=== PATIENT | male | born 1965 | race Caucasian/White ===

== ENCOUNTER 2024-05-15 12:35 | Inpatient (IN) | payer BC, OTHER ==
[~2024-05-15] VITALS: Ht 180.3 cm; Wt 90.2 kg
[2024-05-15 17:30] VITALS: BP 204/122; PULSE 57; RESP 16; TEMP 98.2; O2SAT 97
[2024-05-15 17:56] VITALS: BP 204/122; PULSE 57; RESP 16; TEMP 98.2; O2SAT 97
[2024-05-15] MEDS ORDERED: HYDROmorphone HCL 2 MG/ML VL/or syr IV PRN (18:45)
[2024-05-15] MEDS ORDERED: ONDANSETRON HCL 4 MG/2 ML VIAL IV PRN (18:45)
[2024-05-15] MEDS ORDERED: hydrALAZINE HCL 20 MG/ML VL IV PRN (18:45)
[2024-05-15] MEDS ORDERED: DOCUSATE SOD 100 MG CAP PO PRN (18:45)
[2024-05-15 19:30] VITALS: PULSE 55; RESP 20; O2SAT 98
[2024-05-15 19:54] LABS: Basophils # (auto) 0 10 ^3/uL (0-0.2); Basophils % (auto) 0.4 % (0.0-2.0); Eosinophils # (auto) 0 10 ^3/uL (0-0.8); Eosinophils % (auto) 0.3 % (0.0-7.0); Hematocrit 41.5 % (41.0-53.0); Lymphocytes # (auto) 0.9 10 ^3/uL (0.4-5.4); Lymphocytes % (auto) 27.2 % (10.0-50.0); Mean Corpuscular Hemoglobin 31.3 pg (28.0-32.0); Mean Corpuscular Hgb Conc. 33.8 g/dL (32.0-36.0); Mean Corpuscular Volume 92.4 fL (80.0-100.0); Monocytes # (auto) 0.6 10 ^3/uL (0-1.3); Monocytes % (auto) 16.2 % (0.0-12.0); Neutrophils # (auto) 1.9 10 ^3/uL (1.6-8.6); Neutrophils % (auto) 55.9 % (37.0-80.0); Nucleated Red Blood Cells % 0.2 %; Platelet Count (auto) 158 10^3/uL (140-450); Red Blood Cells 4.49 10^6/uL (4.5-5.90); White Blood Cell 3.5 10^3/uL (4.4-10.8)
[2024-05-15 20:12] LABS: Alanine Aminotransferase 18 U/L (7-40); Albumin 4.3 g/dL (3.2-4.8); Alkaline Phosphatase 64 U/L (46-116); Anion Gap 7 (5-15); Aspartate Aminotransferase 19 U/L (13-40); BUN/Creatinine Ratio 7.2 (10.0-20.0); Bilirubin, Total 0.5 mg/dL (0.2-1.0); Blood Urea Nitrogen 10 mg/dL (9-23); Calcium 9.2 mg/dL (8.7-10.4); Carbon Dioxide 26 mmol/L (20-30); Chloride 105 mmol/L (98-107); Glucose 97 mg/dL (74-106); Potassium 3.2 mmol/L (3.5-5.1); Sodium 138 mmol/L (136-145); Total Protein 7.3 g/dL (5.7-8.2)
[2024-05-15 20:29] LABS: LDL Cholesterol 109 mg/dL (< 100); Triglycerides 111 mg/dL (< 150)
[2024-05-15 20:30] LABS: HDL Cholesterol 40 mg/dL (40-59)
[2024-05-15 20:31] LABS: Cholesterol 168 mg/dL (< 200)
[2024-05-15 21:00] VITALS: BP 214/124; PULSE 63; RESP 20; TEMP 98.2; O2SAT 97
[2024-05-15] MEDS: SODIUM CHLOR 0.9% PF (SALINE LOCK) 10ML VIAL/SYR IV SCH (22:00)
[2024-05-15] MEDS: CLOPIDOGREL BISULFATE 75 MG TAB PO SCH (23:45)
[2024-05-16] VITALS (9 sets, daily range): BP systolic 159–213; BP diastolic 93–125; PULSE 53–81; RESP 18–20; TEMP 97.2–98.3; O2SAT 95–100
[2024-05-16 07:35] LABS: Alanine Aminotransferase 14 U/L (7-40); Albumin 4.2 g/dL (3.2-4.8); Alkaline Phosphatase 56 U/L (46-116); Anion Gap 8 (5-15); Aspartate Aminotransferase 20 U/L (13-40); BUN/Creatinine Ratio 10.2 (10.0-20.0); Bilirubin, Total 0.4 mg/dL (0.2-1.0); Blood Urea Nitrogen 16 mg/dL (9-23); Carbon Dioxide 25 mmol/L (20-30); Chloride 106 mmol/L (98-107); Glucose 108 mg/dL (74-106); Potassium 3.7 mmol/L (3.5-5.1); Sodium 139 mmol/L (136-145); Total Protein 6.8 g/dL (5.7-8.2)
[2024-05-16] MEDS: LORazepam 2MG/ML-1ML VIAL IV PRN (08:09)
[2024-05-16] MEDS: ENOXAPARIN SOD 40 MG/0.4 ML SYRINGE SC SCH (08:42)
[2024-05-16] MEDS: ASPirin-EC 81 mg tab PO SCH (08:43)
[2024-05-16] MEDS ORDERED: CLOPIDOGREL BISULFATE 75 MG TAB PO SCH (10:00)
[2024-05-16 10:16] LABS: Basophils # (auto) 0 10 ^3/uL (0-0.2); Basophils % (auto) 0.4 % (0.0-2.0); Eosinophils # (auto) 0 10 ^3/uL (0-0.8); Eosinophils % (auto) 0.6 % (0.0-7.0); Hematocrit 42.7 % (41.0-53.0); Hemoglobin 14.1 g/dL (13.5-17.5); Lymphocytes # (auto) 0.9 10 ^3/uL (0.4-5.4); Mean Corpuscular Hemoglobin 30.8 pg (28.0-32.0); Mean Corpuscular Volume 93.4 fL (80.0-100.0); Monocytes # (auto) 0.6 10 ^3/uL (0-1.3); Monocytes % (auto) 15.6 % (0.0-12.0); Neutrophils # (auto) 2.4 10 ^3/uL (1.6-8.6); Neutrophils % (auto) 61.4 % (37.0-80.0); Nucleated Red Blood Cells % 0.2 %; Platelet Count (auto) 157 10^3/uL (140-450); Red Blood Cells 4.57 10^6/uL (4.5-5.90); Red Cell Distribution Width 16.1 % (11.8-14.3); White Blood Cell 3.9 10^3/uL (4.4-10.8)
[2024-05-16] MEDS ORDERED: LORazepam 2MG/ML-1ML VIAL IV PRN (10:25)
[2024-05-16] MEDS: hydrALAZINE HCL 20 MG/ML VL IV PRN (13:35)
[2024-05-16 14:18] LABS: Amphetamine Screen, Urine Neg (NEGATIVE); Barbiturate Scree,Urine Neg (NEGATIVE); Benzodiazephine Screen, Urine Neg (NEGATIVE); Cocaine Screen, Urine Neg (NEGATIVE)
[2024-05-16 14:19] LABS: Cannabinoid Screen, Urine Neg (NEGATIVE); Opiate Scree,Urine Neg (NEGATIVE); Phencyclidine Screen, Urine Neg (NEGATIVE)
[2024-05-16 15:51] LABS: Urine Bacteria None Seen /hpf (None Seen)
[2024-05-16 16:07] LABS: Urine Blood Negative /uL (Negative); Urine Clarity Clear (Clear); Urine Color Yellow (Yellow); Urine Mucus FEW (None Seen); Urine Protein, UAD 1+ (Negative); Urine Specific Gravity 1.023 (1.001-1.035); Urine Urobilinogen Normal (Negative); Urine WBC 1 /hpf (0 - 3); Urine pH 6.5 (5.0-9.0)
[2024-05-16] MEDS: ATORVASTATIN 20 MG TAB PO SCH (21:54)
[2024-05-17] VITALS (9 sets, daily range): BP systolic 111–218; BP diastolic 70–144; PULSE 61–81; RESP 16–20; TEMP 97.7–98.2; O2SAT 96–99
[2024-05-17 06:27] LABS: Basophils # (auto) 0 10 ^3/uL (0-0.2); Basophils % (auto) 0.3 % (0.0-2.0); Eosinophils # (auto) 0 10 ^3/uL (0-0.8); Eosinophils % (auto) 1.3 % (0.0-7.0); Hematocrit 41.7 % (41.0-53.0); Hemoglobin 14.1 g/dL (13.5-17.5); Lymphocytes % (auto) 30.2 % (10.0-50.0); Mean Corpuscular Hemoglobin 31.2 pg (28.0-32.0); Mean Corpuscular Hgb Conc. 33.7 g/dL (32.0-36.0); Mean Corpuscular Volume 92.5 fL (80.0-100.0); Monocytes # (auto) 0.6 10 ^3/uL (0-1.3); Monocytes % (auto) 16.7 % (0.0-12.0); Neutrophils # (auto) 1.7 10 ^3/uL (1.6-8.6); Neutrophils % (auto) 51.5 % (37.0-80.0); Nucleated Red Blood Cells % 0.3 %; Platelet Count (auto) 158 10^3/uL (140-450); Red Blood Cells 4.51 10^6/uL (4.5-5.90); Red Cell Distribution Width 16.1 % (11.8-14.3); White Blood Cell 3.4 10^3/uL (4.4-10.8)
[2024-05-17 06:40] LABS: Calcium 9.6 mg/dL (8.7-10.4); Chloride 105 mmol/L (98-107); Potassium 3.8 mmol/L (3.5-5.1); Sodium 138 mmol/L (136-145)
[2024-05-17 06:41] LABS: Anion Gap 5 (5-15); Carbon Dioxide 28 mmol/L (20-30)
[2024-05-17 06:46] LABS: BUN/Creatinine Ratio 11.6 (10.0-20.0); Blood Urea Nitrogen 17 mg/dL (9-23); Glucose 94 mg/dL (74-106)
[2024-05-17] MEDS: hydrALAZINE HCL 20 MG/ML VL IV PRN (11:49)
[2024-05-17] MEDS: HYDROcodone-ACET 5/325MG TAB PO PRN (16:11)
[2024-05-17] MEDS: METOPROLOL TARTRATE 25 MG TAB PO SCH (16:12)
[2024-05-17] MEDS: LOSARTAN POTASSIUM 50 MG TAB PO SCH (16:13)
[2024-05-18] VITALS (8 sets, daily range): BP systolic 137–184; BP diastolic 80–131; PULSE 60–69; RESP 15–20; TEMP 97.7–98.5; O2SAT 96–99
[2024-05-18 07:03] LABS: Anion Gap 7 (5-15); Basophils # (auto) 0 10 ^3/uL (0-0.2); Basophils % (auto) 0.2 % (0.0-2.0); Carbon Dioxide 25 mmol/L (20-30); Chloride 107 mmol/L (98-107); Eosinophils # (auto) 0 10 ^3/uL (0-0.8); Eosinophils % (auto) 0.7 % (0.0-7.0); Hematocrit 42.3 % (41.0-53.0); Hemoglobin 14.3 g/dL (13.5-17.5); Lymphocytes # (auto) 0.9 10 ^3/uL (0.4-5.4); Lymphocytes % (auto) 23.6 % (10.0-50.0); Mean Corpuscular Hemoglobin 30.9 pg (28.0-32.0); Mean Corpuscular Hgb Conc. 33.9 g/dL (32.0-36.0); Mean Corpuscular Volume 91.3 fL (80.0-100.0); Monocytes # (auto) 0.6 10 ^3/uL (0-1.3); Monocytes % (auto) 15.8 % (0.0-12.0); Neutrophils # (auto) 2.2 10 ^3/uL (1.6-8.6); Neutrophils % (auto) 59.7 % (37.0-80.0); Platelet Count (auto) 164 10^3/uL (140-450); Potassium 3.9 mmol/L (3.5-5.1); Red Blood Cells 4.63 10^6/uL (4.5-5.90); Red Cell Distribution Width 15.7 % (11.8-14.3); Sodium 139 mmol/L (136-145); White Blood Cell 3.7 10^3/uL (4.4-10.8)
[2024-05-18 07:04] LABS: Calcium 9.1 mg/dL (8.7-10.4)
[2024-05-18 07:09] LABS: BUN/Creatinine Ratio 9.9 (10.0-20.0); Blood Urea Nitrogen 15 mg/dL (9-23); Glucose 97 mg/dL (74-106)
[2024-05-18] MEDS: hydrALAZINE HCL 20 MG/ML VL IV PRN (08:13)
[2024-05-18] MEDS ORDERED: IOHEXOL 350 MG/ML 100ML IJ ONE (08:25)
[2024-05-18 10:49] LABS: Folate (Folic Acid) 15.31 ng/mL (>5.38)
[2024-05-18] MEDS ORDERED: CLOP75TA70 PO (13:37)
[2024-05-18] MEDS ORDERED: NIFE1TAB30 PO (13:37)
[2024-05-18] MEDS ORDERED: LOSA-534 PO (13:37)
[2024-05-18] MEDS ORDERED: ATOR40TA52 PO (13:37)
[2024-05-18] MEDS ORDERED: MET50T PO (13:37)
[2024-05-18] MEDS ORDERED: ASPI-543 PO (13:37)
[2024-05-18] MEDS: ACETAMINOPHEN 325 MG TAB PO PRN (17:13)
[2024-05-18] MEDS: cloNIDine HCL 0.1 MG TAB PO ONE (18:13)
[2024-05-18] MEDS: METOPROLOL TARTRATE 25 MG TAB PO SCH (21:34)
[2024-05-19] VITALS (9 sets, daily range): BP systolic 136–180; BP diastolic 87–109; PULSE 52–80; RESP 15–18; TEMP 97.9–98.7; O2SAT 96–98
[2024-05-19] MEDS: LOSARTAN POTASSIUM 50 MG TAB PO SCH (08:53)
[2024-05-19] MEDS: NIFEdipine ER 30 MG TAB PO SCH (08:54)
[2024-05-19] MEDS: cloNIDine HCL 0.1 MG TAB PO ONE ×2 (10:45→16:24)
[2024-05-19] MEDS: hydroCHLOROthiazide 25 MG TAB PO SCH (10:45)
[2024-05-19] MEDS ORDERED: HYDR25TA5 PO (13:53)
[2024-05-19] MEDS: cloNIDine HCL 0.1 MG TAB PO SCH (14:00)
[2024-05-19] MEDS: METOPROLOL TARTRATE 25 MG TAB PO SCH (21:52)
[2024-05-20 01:00] VITALS: BP 107/71; PULSE 55; RESP 16; TEMP 97.9; O2SAT 98
[2024-05-20 05:00] VITALS: BP 106/69; PULSE 60; RESP 16; TEMP 97.7; O2SAT 99
[2024-05-20 05:59] LABS: Calcium 9.3 mg/dL (8.7-10.4); Chloride 105 mmol/L (98-107); Potassium 3.9 mmol/L (3.5-5.1); Sodium 136 mmol/L (136-145)
[2024-05-20 06:00] LABS: Anion Gap 6 (5-15); Carbon Dioxide 25 mmol/L (20-30)
[2024-05-20 06:05] LABS: BUN/Creatinine Ratio 11.5 (10.0-20.0); Blood Urea Nitrogen 18 mg/dL (9-23); Glucose 103 mg/dL (74-106)
[2024-05-20 08:00] VITALS: PULSE 50; PULSE 53; RESP 16; O2SAT 100
[2024-05-20 08:56] VITALS: BP 103/68; PULSE 53; RESP 16; TEMP 97.9; O2SAT 100
[2024-05-20 12:32] VITALS: BP 111/76; PULSE 54; RESP 16; TEMP 97.6; O2SAT 95
[2024-05-20 16:41] VITALS: BP 118/70; PULSE 54; RESP 15; TEMP 97.6; O2SAT 100
== END 2024-05-20 17:55 | disposition home or self-care (01) | DRG 64 ==
LOC: TELE 17:26 → TELE-CENTR 18:31
PROVIDERS: ADMIT Internal Medicine; ATTEND Internal Medicine
PROC: 05H933Z Insertion of Infusion Device into Right Brachial Vein, Percutaneous Approach (ICD-10-PCS; principal; 2024-05-17)
PROC: B54MZZA Ultrasonography of Right Upper Extremity Veins, Guidance (ICD-10-PCS; 2024-05-17)
DX: I63.9 Cerebral infarction, unspecified (principal); I21.A1 Myocardial infarction type 2; N17.0 Acute kidney failure with tubular necrosis; I16.1 Hypertensive emergency; E78.5 Hyperlipidemia, unspecified; I12.9 Hypertensive chronic kidney disease with stage 1 through stage 4 chronic kidney disease, or unspecified chronic kidney disease; N18.9 Chronic kidney disease, unspecified; I65.21 Occlusion and stenosis of right carotid artery; F17.200 Nicotine dependence, unspecified, uncomplicated; Z82.49 Family history of ischemic heart disease and other diseases of the circulatory system; Z83.3 Family history of diabetes mellitus; Z79.899 Other long term (current) drug therapy; Z79.82 Long term (current) use of aspirin; Z79.02 Long term (current) use of antithrombotics/antiplatelets; Z91.148 Patient's other noncompliance with medication regimen for other reason
CPT/HCPCS: 36415; 70498; 70545; 70547; 70551; 76775; 80048; 80053; 80061; 80307; 81001; 82306; 82607; 82746; 83036; 83605; 84443; 84484; 85025; 87081; 93306; 93886; 93975; G0378